=== PATIENT | female | born 1995 | race Hispanic/Latino ===

== ENCOUNTER 2018-04-21 16:21 | Emergency (ER) | payer BC, OTHER ==
[2018-04-21 16:26] VITALS: O2SAT 98
--- NOTE | 2018-04-21 17:24 | RAD ---
Date of service: 04/21/2018 PROCEDURE: X-ray neck soft tissue HISTORY: Neck pain COMPARISON: Not available TECHNIQUE: AP and lateral radiographs of the cervical soft tissues are submitted. FINDINGS: The tracheal air column is midline. There is no radiopaque foreign body identified. There is no retropharyngeal soft tissue swelling. The epiglottis is poorly visualized but grossly unremarkable. There is no evidence of epiglottal enlargement. IMPRESSION: Normal examination.
[2018-04-21 17:44] VITALS: BP 108/70; PULSE 70; RESP 18; TEMP 99.3
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
== END 2018-04-21 18:39 | disposition home or self-care (01) ==
LOC: C.ER 16:21
DX: R51 Headache (principal); M79.1 Myalgia